=== PATIENT | female | born 1995 | race Caucasian/White ===

== ENCOUNTER → 2018-01-07 | Outpatient (CLI) | payer BC ==
[~2018-01-07] MED LIST: BIRTH CONTROL PO; CEFU500T50 PO; CEPH250C37 PO; DEPRESSION PILL PO; HYDR-653 PO; LOR5/325 PO; ONDA-2 PO; ONDA4TAB PO; no routine meds
== END ==
LOC: LAB 11:24
PROVIDERS: ATTEND Internal Medicine
DX: E03.8 Other specified hypothyroidism (principal); E06.3 Autoimmune thyroiditis
CPT/HCPCS: 36415; 82784; 83516; 84439; 84443; 84481; 86376